=== PATIENT | female | born 1965 | race Caucasian/White ===

== ENCOUNTER → 2018-04-03 08:22 | Outpatient (CLI) | payer BC, SELFPAY ==
--- NOTE | 2018-04-03 08:25 | MR_ITS ---
MR head/brain wo con Ordering Physician: Amy Mitchell Patient Age: 52 years: Female HISTORY: ITS.REASON: LEFT ARM WEAKNESS, FACIAL DROOP Greco's palsy left side 2 weeks. Persistent facial droop. Also pain behind eye and left ear. TECHNIQUE: : Precontrast Multiplanar FLAIR, T1, T2 weighted images along with axial diffusion/ADC imaging performed on 1.5 T. Siemens, MRI. Postcontrast imaging Following 12 mL ProHance T1-weighted images axial & coronal plane performed COMPARISON :CT head FINDINGS normal appearing MR Brain for age.. . Diffusion images reveal no recent infarct or ischemia. No territorial infarct. . No extra-axial nor subdural collection.No mass lesion No discrete or focal deep white matter lesions of significance evident. The sensitive FLAIR images show no significant focal or discrete white matter lesions. FLAIR images show only some normal signal at tip of anterior horns with Only upper normal signal barely evident, overlying atria & occipital horns of left lateral ventricle bilaterally, more so than right . Can be related ventricle pulsation vs very early periventricular white matter signal change.. The cranial cervical junction is normal. In regards to the Greco's palsy symptoms attention directed to the Meckel's cave and parasellar region which appear normal on this noncontrast study.. Cavernous sinus regions unremarkable bilaterally as well... Also sella, Suprasellar region, ventricles and basal cisterns unremarkable.. . Gross overview of the [place] unremarkable on this routine survey brain MR.Orbits unremarkable Posterior fossa appears satisfactory. CP angles clear. Cranial nerve VII and VIII identified and appear satisfactory. Normal IACs bilaterally. Mastoid and temporal bone region unremarkable Minor paranasal sinus disease Opacification of one or 2 left ethmoid air cells reflecting mild ethmoid sinus inflammatory changes. Only borderline/scant mucosal thickening elsewhere and ethmoid air cells as well as throughout the sphenoid sinus. Maxillary sinuses unremarkable but frontal sinuses clear. Scalp and skull satisfactory . IMPRESSION: Basically Negative MR brain for age No acute intracranial findings. No recent or acute infarct/nor ischemia evident No mass lesion. No definitive deep white matter abnormalities. No Focal FLAIR signal abnormalities Only Upper normal signal overlying the atria & occipital horn on left-likely within spectrum normal for age,
== END ==
PROVIDERS: PCP Nurse Practitioner; Visit Provider Nurse Practitioner
DX: R29.810 Facial weakness (principal); R29.898 Other symptoms and signs involving the musculoskeletal system
CPT/HCPCS: 70551

== ENCOUNTER → 2019-02-14 08:53 | Outpatient (CLI) | payer BC, SELFPAY ==
--- NOTE | 2019-02-14 09:00 | US_ITS ---
PROCEDURE: US THYROID CLINICAL INDICATION: UNCOMPENSATED SWALLOWING IMPAIRMENT ,PAIN Difficulty swallowing COMPARISON: No exams were available for comparison FINDINGS: Right lobe: 4 x 1.5 x 1.5 cm. 3 mm cyst upper pole with some heterogeneous echogenicity noted Left lobe: 3.8 x 1.2 x 1.4 cm. Subtle 6 mm nodule lower pole hypoechoic nonspecific Isthmus: Unremarkable Additional findings: IMPRESSION: Small bilateral thyroid nodules low level of suspicion for malignancy otherwise negative. The thyroid gland is not enlarged Dictated by: Felipe Yeung MD 02/14/2019 17:27 Signed by: <Electronically signed by Felipe Yeung MD in [place]> 02/14/2019 17:27
== END ==
PROVIDERS: PCP Nurse Practitioner; Visit Provider Nurse Practitioner
DX: R13.19 Other dysphagia (principal); R52 Pain, unspecified
CPT/HCPCS: 76536

== ENCOUNTER → 2019-03-10 15:17 | Outpatient (CLI) | payer BC, SELFPAY ==
[2019-03-10 16:12] LABS: Free T4 (Free Thyroxine) 0.78 ng/dl (0.76-1.46); Thyroid Stimulating Hormone 2.02 uIU/ml (0.358-3.740)
[2019-03-15 13:21] LABS: Calcitonin <2.0 pg/mL (0.0-5.0)
== END ==
PROVIDERS: Visit Provider Otolaryngology
DX: E04.1 Nontoxic single thyroid nodule (principal); R13.10 Dysphagia, unspecified
CPT/HCPCS: 36415; 82308; 84439; 84443

== ENCOUNTER → 2019-03-14 08:48 | Outpatient (CLI) | payer BC, SELFPAY ==
--- NOTE | 2019-03-14 08:50 | FL_ITS ---
PROCEDURE: FL BARIUM SWALLOW CLINICAL INDICATION: swallowing difficulty sensation of food hanging up in cervical region COMPARISON: No exams were available for comparison TECHNIQUE: In the upright position the patient was observed to swallow barium in both the AP and lateral view. The cervical esophagus was examined under fluoroscopy with images obtained. The patient was then placed prone in the right anterior oblique position and was observed to swallow barium with Valsalva technique . FLUOROSCOPY TIME: FINDINGS: Was normal. Spot films of the cervical esophagus show prominent cricopharyngeal dysfunction at the level of the C6 vertebral body focally narrowing the barium column by approximately 50 percent. There was no evidence of aspiration. Otherwise esophageal motility was normal. There is a mildly patulous gastroesophageal junction but there is no GE reflux seen during the study. 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 Josr Orantes MD 03/14/2019 10:[address] Josr Orantes MD in [place] 03/14/2019 10:17
== END ==
PROVIDERS: PCP Nurse Practitioner; Visit Provider Otolaryngology
DX: E04.1 Nontoxic single thyroid nodule (principal); R13.10 Dysphagia, unspecified
CPT/HCPCS: 74220

== ENCOUNTER → 2020-02-05 13:05 | Outpatient (CLI) | payer BC, SELFPAY ==
[2020-02-06 13:52] LABS: Covid-19 Nasal PCR Sendout Lex Not Detected
== END ==
PROVIDERS: PCP Nurse Practitioner; Visit Provider Nurse Practitioner Family
DX: Z03.818 Encounter for observation for suspected exposure to other biological agents ruled out (principal)
CPT/HCPCS: U0004

== ENCOUNTER 2020-07-04 13:57 | Emergency (ER) | payer BC, SELFPAY ==
[2020-07-04 14:00] VITALS: BP 125/76; PULSE 69; RESP 14; TEMP 36.6; O2SAT 96; BMI 28.6
--- NOTE | 2020-07-04 14:13 | HMH.EDUTC ---
[facility] [place] Impression: Exposure to COVID-19 virus Disposition: Home, Self-Care Condition on Discharge: Good Instructions: Preventing the Spread of Coronavirus Discharge Instructions Additional Instructions: Drink plenty of fluids. Take tylenol for pain or fever. Return if you begin to have difficulty breathing. Follow up with your regular doctor. GO TO THE ER FOR ANY WORSENING SYMPTOMS Prescriptions: Ondansetron [Zofran 4mg ODT] 4 mg PO Q8HP PRN #12 tab.rapdis PRN Reason: Nausea Transmission Status: Received by [facility] Referrals: Amy Mitchell APRN [Primary Care Provider] - Time of Disposition: 14:37 Medical Decision Making - Medical Records Medical records reviewed: No: I reviewed the patient's medical records. - Nile Inquiry Pt receiving controlled substance: No Vital Signs: 07/04/20 14:00 07/04/20 14:24 Temperature 97.9 F 97.9 F Temperature Source Oral Pulse Rate 69 Pulse Rate [Right Brachial] 69 Respiratory Rate 14 14 Blood Pressure 125/76 Blood Pressure [Right Arm] 125/76 Blood Pressure Mean [Right Arm] 92 Blood Pressure Source [Right Arm] Automatic Cuff Blood Pressure Position [Right Arm] Sitting 02 Sat by Pulse Oximetry 96 Oxygen Delivery Method Room Air Orders (Tests/Meds): ORDERS Category Date Time Status Covid-19 Nasal PCR ([facility]) Routine Lab 07/04/20 14:05 [place] [facility] [place] - General Stated complaint: covid exposure Time Seen by Provider: 07/04/20 14:13 - History of Present Illness Provider Complaint: She states that she was exposed to covid at her workplace about 1 week ago. She states that over the past 1 day she has developed body aches, sinus congestion, and malaise. - Related Data Home Medications Medication Instructions Recorded Confirmed gabapentin 800 mg tablet 800 mg PO TID 03/10/19 03/10/19 rosuvastatin 40 mg tablet 40 mg PO DAILY 03/10/19 03/10/19 Previous Rx's Medication Instructions Recorded Ondansetron [Zofran 4mg ODT] 4 mg PO Q8HP PRN #12 tab.rapdis 07/04/20 Allergies Allergy/AdvReac Type Severity Reaction Status Date / Time No Known Allergies Allergy Verified 03/10/19 14:56 [facility] History - Hepatitis A Screen Attestation statement:: This patient has been screened for Hepatitis A risk factors. I have reviewed the patient's past medical history: Yes Medical History: Reports:: Hyperlipidemia, Hypertension Denies:: Internal Pacemaker Other Surgeries: Yes: Other. No: Pacemaker Amputation: No Fractures: No Comment: back - Social History Smoking Status: Never smoker Alcohol Intake: never Substance Use Type: denies use Occupational Status: employed Family Hx:: Stroke ROS Obtained: Yes All systems reviewed & no additional complaints - Constitutional Constitutional: Reports system reviewed and no additional complaints, except as docu - Eyes Eyes: Reports system reviewed and no additional complaints, except as docu - ENT Ears, Nose, Mouth, and Throat: Reports system reviewed and no additional complaints, except as docu - Cardiovascular Cardiovascular: Reports system reviewed and no additional complaints, except as docu - Respiratory Respiratory: Reports system reviewed and no additional complaints, except as docu - Gastrointestinal Gastrointestingal: Reports: system reviewed and no additional complaints, except as docu Physical Exam - General General appearance: alert, in no apparent distress - Head Head exam: atraumatic, normocephalic, normal inspection - Eye Eye exam: Present: normal appearance, PERRL, EOMI - ENT ENT exam: Present: normal exam, normal oropharynx, mucous membranes moist, TM's normal bilaterally, normal external ear exam - Neck Neck exam: Present: normal inspection, full ROM, trachea midline. Absent: meningismus, lymphadenopathy - Chest Chest inspection: Present: normal inspection, symmetric chest wall ri
[2020-07-04 14:24] VITALS: BP 125/76; PULSE 69; RESP 14; TEMP 36.6; O2SAT 96
--- NOTE | 2020-07-04 20:30 | PC.NURSE ---
ATTEMPTED TO CALL PATIENT TO REPORT POSITIVE TEST AT THIS TIME. NO ANSWER. VOICEMAIL LEFT TO RETURN CALL
--- NOTE | 2020-07-04 20:34 | PC.NURSE ---
PATIENT NOTIFIED OF POSITIVE COVID TEST AT THIS TIME
== END 2020-07-04 14:45 | disposition home or self-care (01) ==
PROVIDERS: Emergency Provider Nurse Practitioner Family; PCP Nurse Practitioner
DX: U07.1 COVID-19 (principal); E78.5 Hyperlipidemia, unspecified; I10 Essential (primary) hypertension; Z79.899 Other long term (current) drug therapy
CPT/HCPCS: 99202; G0463; U0003

== ENCOUNTER 2021-02-16 08:58 | Emergency (ER) | payer BC, SELFPAY ==
[2021-02-16 09:30] VITALS: PULSE 86; RESP 16; TEMP 36.6; O2SAT 98; BMI 30.7
--- NOTE | 2021-02-16 09:31 | HMH.EDUTC ---
[facility] [place] Clinical Impression: Viral syndrome, Exposure to COVID-19 virus Disposition: Home, Self-Care Condition on Discharge: Good Instructions: DI for COVID-19 (Suspected or Confirmed ), Preventing the Spread of Coronavirus Discharge Instructions Additional Instructions: Drink plenty of fluids. Take tylenol for pain or fever. Return if you begin to have difficulty breathing. Follow up with your regular doctor. GO TO THE ER FOR ANY WORSENING SYMPTOMS Quarantine until you know the results of your covid-19 test. If it is positive, the health department should call you and give you further instructions about your length of Quarantine and other things. Notify your school or workplace of your results and follow their instructions regarding return to work/school. Referrals: Dory Barber MD [Primary Care Provider] - Forms: Work/School Release Time of Disposition: 09:37 Medical Decision Making - Medical Records Medical records reviewed: No: I reviewed the patient's medical records. - Nile Inquiry Pt receiving controlled substance: No Vital Signs: 02/16/21 09:30 02/16/21 09:33 Temperature 97.9 F 98 F Temperature Source Oral Pulse Rate 86 Pulse Rate [Left] 86 Respiratory Rate 16 16 Blood Pressure 147/83 H 02 Sat by Pulse Oximetry 98 [facility] [place] HPI - General Stated complaint: Covid test; cough; weakness;headache Time Seen by Provider: 02/16/21 09:31 - History of Present Illness Provider Complaint: She needs to be tested for covid-19. - Related Data Home Medications Medication Instructions Recorded Confirmed gabapentin 800 mg tablet 800 mg PO TID 03/10/19 03/10/19 rosuvastatin 40 mg tablet 40 mg PO DAILY 03/10/19 03/10/19 Previous Rx's Medication Instructions Recorded Ondansetron [Zofran 4mg ODT] 4 mg PO Q8HP PRN #12 tab.rapdis 07/04/20 Allergies Allergy/AdvReac Type Severity Reaction Status Date / Time No Known Allergies Allergy Verified 03/10/19 14:56 [facility] History - Hepatitis A Screen Attestation statement:: This patient has been screened for Hepatitis A risk factors. I have reviewed the patient's past medical history: Yes Medical History: Reports:: Hyperlipidemia, Hypertension Denies:: Internal Pacemaker Other Surgeries: Yes: Other. No: Pacemaker Amputation: No Fractures: No Comment: back - Social History Smoking Status: Never smoker Alcohol Intake: never Substance Use Type: denies use Occupational Status: other Family Hx:: Stroke ROS Obtained: Yes All systems reviewed & no additional complaints - Constitutional Constitutional: Reports system reviewed and no additional complaints, except as docu - Eyes Eyes: Reports system reviewed and no additional complaints, except as docu - ENT Ears, Nose, Mouth, and Throat: Reports system reviewed and no additional complaints, except as docu - Cardiovascular Cardiovascular: Reports system reviewed and no additional complaints, except as docu - Respiratory Respiratory: Reports system reviewed and no additional complaints, except as docu - Gastrointestinal Gastrointestingal: Reports: system reviewed and no additional complaints, except as docu Physical Exam - General General appearance: alert, in no apparent distress - Head Head exam: atraumatic, normocephalic, normal inspection - Eye Eye exam: Present: normal appearance, PERRL, EOMI - ENT ENT exam: Present: normal exam, normal oropharynx, mucous membranes moist, TM's normal bilaterally, normal external ear exam - Neck Neck exam: Present: normal inspection, full ROM, trachea midline. Absent: meningismus, lymphadenopathy - Chest Chest inspection: Present: normal inspection, symmetric chest wall rise. Absent: tenderness - Respiratory Respiratory exam: Present: normal lung sounds bilaterally. Absent: respiratory distress - Cardiovascular Cardiovascular exam: Present: regular rate, normal rhythm. Absent: JVD
[2021-02-16 09:33] VITALS: BP 147/83; PULSE 86; RESP 16; TEMP 36.6
== END 2021-02-16 09:53 | disposition home or self-care (01) ==
PROVIDERS: Emergency Provider Nurse Practitioner Family; PCP Family Medicine
DX: B34.9 Viral infection, unspecified (principal); Z20.822 Contact with and (suspected) exposure to COVID-19
CPT/HCPCS: 99202; G0463; U0003

== ENCOUNTER 2022-03-17 20:46 | Observation (INO) | payer BC, SELFPAY ==
--- NOTE | 2022-03-17 20:44 | ECG_ITS ---
APPROVED REPORT Exam: Resting ECG HR:69 bpm ECG Measurements Heart Rate 69 AXES NJ 216 P 72 QRSd 90 QRS 71 QT 396 T 64 QTc 414 Conclusion SINUS RHYTHM WITH FIRST DEGREE AV BLOCK ABNORMAL ECG UNCONFIRMED REPORT Electronically signed by : Alessio Lyle MD 03/18/2022 16:04:37
[2022-03-17 20:46] VITALS: BP 136/97; PULSE 80; RESP 16; TEMP 36.7; O2SAT 97; BMI 29.9
--- NOTE | 2022-03-17 20:58 | XR_ITS ---
PROCEDURE INFORMATION: Exam: XR Chest Exam date and time: 03/17/22 09:15 PM Age: 56 years old Clinical indication: Sternal or substernal pain; Additional info: Chest pain TECHNIQUE: Imaging protocol: Radiologic exam of the chest. Views: 2 views. COMPARISON: CR CXR1 CHEST-PORTABLE 09/12/16 12:23 PM FINDINGS: Lungs: Unremarkable. No consolidation. Pleural spaces: Unremarkable. No pleural effusion. No pneumothorax. Heart/Mediastinum: Unremarkable. No cardiomegaly. Bones/joints: Unremarkable. IMPRESSION: No acute findings.
[2022-03-17 21:00] VITALS: BP 125/70; PULSE 65; RESP 17; O2SAT 95
[2022-03-17 21:06] LABS: Basophils # 0.1 K/mm3 (0-0.2); Basophils % 1.3 % (0.1-2.0); Eosinophils # 0.3 K/mm3 (0.0-0.4); Eosinophils % 2.3 % (0.1-12.0); Hematocrit 38.2 % (37.0-47.0); Hemoglobin 12.4 g/dL (12.2-16.2); Lymphocytes # 3.4 K/mm3 (0.7-4.5); Lymphocytes % 31.5 % (10-50); Mean Corpuscular HGB Conc 32.5 g/dL (31.8-35.4); Mean Corpuscular Hemoglobin 29.2 pg (27.0-31.2); Mean Corpuscular Volume 89.9 fl (81-99); Mean Platelet Volume 8.1 fl (7.4-10.4); Monocytes # 0.6 K/mm3 (0.1-1.0); Monocytes % 5.1 % (1.7-9.3); Neutrophils # 6.5 K/mm3 (1.8-7.8); Neutrophils % 59.8 % (37.0-80.0); Platelet Count 316 K/mm3 (142-424); Red Blood Count 4.25 M/mm3 (4.20-5.40); Red Cell Distribution Width 13.5 % (11.5-17.5); White Blood Count 10.8 K/mm3 (4.8-10.8)
[2022-03-17 21:08] LABS: Chloride 102 mmol/L (98-107); Sodium 143 mmol/L (136-145)
[2022-03-17 21:09] LABS: Potassium 3.9 mmoL/L (3.5-5.1)
[2022-03-17 21:11] LABS: Alanine Aminotransferase 17 U/L (12-78); Albumin Level 4.3 g/dl (3.5-5.0); Albumin/Globulin Ratio 1.2 (1.1-1.8); Alkaline Phosphatase 98 U/L (38-126); Anion Gap 13.9 mEq/L (5-15); Aspartate Amino Transferase 34 U/L (14-36); Blood Urea Nitrogen 13 mg/dl (7-17); Carbon Dioxide 31 mmol/L (22.0-30.0); Creatinine Clearance Estimated 117 mL/min (50-200); Estimated Glomerular Filt Rate 86 ml/min (>60); GFR (African American) 104 ML/MIN (>60); Globulin 3.5 g/dL (1.3-3.2); Total Protein,Serum 7.8 g/dl (6.3-8.2)
[2022-03-17 21:12] LABS: Calcium 8.6 mg/dl (8.4-10.2); Glucose 84 mg/dl (74-100)
--- NOTE | 2022-03-17 21:17 | HMH.EDCP ---
Discharge Plan Disposition Patient Disposition: Admitted as Observation Chief Complaint: Chest Pain Clinical Impressions Clinical Impression: Chest pain, Hypertension Discharge ED Provider: Angel James Chest Pain HPI General Chief Complaint: Chest Pain Stated Complaint: CP/SOA Time Seen by Provider: 03/17/22 21:17 Mode of Arrival: Ambulatory Source of Information: Patient and Medical Record Limitations: No Limitations Description of Symptoms (Recalled from ER Triage Doc. by RN): pt states she has been short of air with chest pain since yesterday and now the pain has gotten worse 6/10 and she has tingling going down the left arm. no cardiac hx per pt History of Present Illness HPI narrative: acute onset of new chest pain with rad to lt upper ext with no fever or rash and no recent viral illness MD complaint: chest pain indicative of cardiac Onset (ago): day(s) Duration: intermittent Activity at onset: during rest Pain location: left chest Severity: moderate Quality: sharp Pain radiation: LUE Relieving factors: nothing Risk Factors for CAD: Hypertension and Family Hx of CAD Treatments prior to or on arrival for Cardiac Chest Pain: none ARCHANA Score for Non-Stemi Age of Patient: 50-59 years old Heart Rate: 50-69 bpm Systolic Blood Pressure: 120-139 mmhg Serum Creatinine: 0.40-0.79 mg/dl CHF Killip Class: I-No CHF Other Risk Factors: None Non-Stemi Risk Score: 82 Related Data On Oral Contraceptives: No Home Medications Medication Instructions Recorded Confirmed gabapentin 800 mg tablet 800 mg PO TID 03/10/19 03/10/19 rosuvastatin 40 mg tablet (Crestor) 40 mg PO DAILY 03/10/19 03/10/19 Previous Rx's Medication Instructions Recorded ondansetron 4 mg disintegrating 4 mg PO Q8HP PRN Nausea ##12 07/04/20 tablet Allergies Allergy/AdvReac Type Severity Reaction Status Date / Time No Known Allergies Allergy Verified 03/10/19 14:56 PFSH PFSH Social History Smoking Status: Never smoker alcohol intake: never substance use type: denies use current occupational status: other Travel in the last 8 weeks: None caffeine: Yes ROS Obtained: Yes All systems reviewed & no additional complaints except as documented Constitutional Constitutional: Denies fever(s) and Denies headache(s) ENT Ears, Nose, Mouth, and Throat: Denies dizziness and Denies headache(s) Cardiovascular Cardiovascular: Reports as per HPI, Reports chest pain at rest, Denies dyspnea and Reports radiating jaw, neck or arm pain Respiratory Respiratory: Denies dyspnea Gastrointestinal Gastrointestingal: Denies hematochezia Musculoskeletal Musculoskeletal: Denies joint swelling Integumentary/Breasts Skin/Breast: Denies rash Neurologic Neurologic: Denies dizziness and Denies headache(s) Physical Exam General General appearance: alert Head Head exam: normocephalic Eye Eye exam: Present PERRL and EOMI; Absent scleral icterus ENT ENT exam: Present mucous membranes moist Neck Neck exam: Present trachea midline Respiratory Respiratory exam: Present normal lung sounds bilaterally; Absent respiratory distress Cardiovascular Cardiovascular exam: Present regular rate and systolic murmur; Absent rubs Abdominal Exam Abdominal exam: Present soft Extremities Exam Extremities exam: Present full ROM; Absent calf tenderness Neurological Exam Neurological exam: Present alert, oriented X3 and CN II-XII intact Psychiatric Psychiatric exam: Present normal affect Skin Skin exam: Absent rash Medical Decision Making Medical Records Medical records reviewed: Yes I reviewed the patient's medical records. Nile Inquiry Pt receiving controlled substance: No Vital Signs: 03/17/22 20:46 03/17/22 21:00 03/17/22 21:30 Temperature 98.0 F Temperature Source Oral Pulse Rate 65 58 L Pulse Rate [Left] 80 Respiratory Rate 16 17 18 Blood Pressure 125/70 131/69 Blood Pressure [Right Arm] 136/97 H Blood Pressure Mean [Right
[2022-03-17 21:19] LABS: Bilirubin,Total < 0.1 mg/dl (0.2-1.3)
--- NOTE | 2022-03-17 21:24 | PC.NURSE ---
pt on their way to xray at this time
[2022-03-17 21:26] LABS: Troponin I < 0.01 ng/ml (0.00-0.034)
--- NOTE | 2022-03-17 21:26 | PC.NURSE ---
pt back from xray
[2022-03-17 21:30] VITALS: BP 131/69; PULSE 58; RESP 18; O2SAT 95
[2022-03-17 22:02] LABS: Coronavirus 19, PCR Not Detected (NotDetected); Influenza A, PCR Not Detected (NotDetected); Influenza B, PCR Not Detected (NotDetected)
[2022-03-17 22:11] VITALS: BMI 32.1
[2022-03-17 22:30] VITALS: BP 111/65; PULSE 60; O2SAT 97
--- NOTE | 2022-03-17 23:41 | PC.NURSE ---
Report called to [facility] at this time
[2022-03-17 23:42] VITALS: BP 124/84; PULSE 55; RESP 16; TEMP 36.6; O2SAT 97
--- NOTE | 2022-03-17 23:44 | PC.NURSE ---
pt arrived to the floor via wheel chair at this time
[2022-03-18] VITALS: BP 129/75; PULSE 58; RESP 20; TEMP 36.6; O2SAT 97
[2022-03-18 00:22] VITALS: PULSE 60
[2022-03-18 04:00] VITALS: BP 118/61; PULSE 60; PULSE 63; RESP 16; TEMP 36.7; O2SAT 92
--- NOTE | 2022-03-18 05:17 | PC.NURSE ---
pt admitted this shift. she is a&oX4. she has had no c/o CP or SOA. ambulates independently and tolerates well. remains on RA o2 sats 92-97%. lung sounds clear. call light in reach no needs at this time.
[2022-03-18 06:48] LABS: Basophils # 0.1 K/mm3 (0-0.2); Basophils % 0.9 % (0.1-2.0); Chloride 106 mmol/L (98-107); Eosinophils # 0.2 K/mm3 (0.0-0.4); Eosinophils % 2.9 % (0.1-12.0); Hematocrit 34.8 % (37.0-47.0); Hemoglobin 11.2 g/dL (12.2-16.2); Lymphocytes % 38.2 % (10-50); Mean Corpuscular Hemoglobin 29.1 pg (27.0-31.2); Mean Corpuscular Volume 90.7 fl (81-99); Mean Platelet Volume 7.8 fl (7.4-10.4); Monocytes # 0.3 K/mm3 (0.1-1.0); Monocytes % 5.9 % (1.7-9.3); Neutrophils # 2.8 K/mm3 (1.8-7.8); Platelet Count 294 K/mm3 (142-424); Red Blood Count 3.84 M/mm3 (4.20-5.40); Red Cell Distribution Width 13.7 % (11.5-17.5); White Blood Count 5.3 K/mm3 (4.8-10.8)
[2022-03-18 06:49] LABS: Potassium 4.1 mmoL/L (3.5-5.1); Sodium 140 mmol/L (136-145)
[2022-03-18 06:51] LABS: Anion Gap 9.1 mEq/L (5-15); Blood Urea Nitrogen 9 mg/dl (7-17); Carbon Dioxide 29 mmol/L (22.0-30.0); Creatinine Clearance Estimated 146 mL/min (50-200); Estimated Glomerular Filt Rate 103 ml/min (>60); GFR (African American) 124 ML/MIN (>60)
[2022-03-18 06:52] LABS: Calcium 8.2 mg/dl (8.4-10.2); Chol/HDL Ratio 4.2 (1-3.5); Cholesterol 165 mg/dl (140-200); Glucose 111 mg/dl (74-100); HDL Cholesterol 39 mg/dl (40-60); Magnesium 2.1 mg/dl (1.6-2.3); Triglycerides 87 mg/dl (30-150); VLDL Cholesterol 17 mg/dL (0-40)
[2022-03-18 07:03] LABS: Direct LDL Cholesterol 93.31 mg/dL (100-129)
[2022-03-18 07:48] VITALS: BP 115/60; PULSE 65; RESP 16; TEMP 36.6; O2SAT 94
[2022-03-18 08:00] VITALS: PULSE 65; O2SAT 94
--- NOTE | 2022-03-18 11:56 | EXP.HPDC ---
General Admission date:: 03/17/22 *Admission Date: 03/17/22 *Chief complaint: Chest pain *History of present illness: Ms. Rodríguez 66-year-old female with a history of hypertension and hyperlipidemia who presented to the emergency room last evening after experiencing episode of chest pain. States she was sitting at home when she developed the pain which radiated to her left arm. She had no associated shortness of breath, palpitations, or nausea. She reports having similar episodes in the past but this 1 seemed a little worse. In the emergency room she was treated with nitroglycerin and aspirin and her pain promptly resolved. Initial EKG and enzymes were negative. She was admitted for serial enzymes and observation. [facility] Medical History (Updated 03/18/22 @ 14:02 by Gabo Harper MD) Back pain Greco's palsy Surgical History (Updated 03/18/22 @ 00:35 by Alba Roca RN) Previous back surgery Family History (Updated 03/18/22 @ 00:35 by Alba Roca RN) Family history of stroke Family history of hypertension Family history of myocardial infarction Lung cancer Social History (Updated 03/18/22 @ 00:37 by Alba Roca RN) Smoking Status: Never smoker alcohol intake: never substance use type: denies use current occupational status: other Travel in the last 8 weeks: None caffeine: Yes Review of Systems Eyes Eyes: Reports system reviewed and no additional complaints, except as documented ENT Ears, Nose, Mouth, and Throat: Reports system reviewed and no additional complaints, except as documented and Denies dizziness *Cardiovascular Cardiovascular: Reports as per HPI and Denies dyspnea *Respiratory Respiratory: Denies chest congestion, Denies cough and Denies dyspnea *Gastrointestinal Gastrointestinal: Denies change in bowel habits and Denies nausea *Genitourinary Genitourinary: Denies dysuria and Denies urinary incontinence *Musculoskeletal Musculoskeletal: Denies arthralgias and Denies joint swelling *Neurologic Neurologic: Denies dizziness Exam Data for Last 24 hours Vital signs and Labs for Last 24 Hours: Temp Pulse Resp BP Pulse Ox 97.9 F 65 16 115/60 94 L 03/18/22 07:48 03/18/22 08:00 03/18/22 07:48 03/18/22 07:48 03/18/22 08:00 Laboratory Results - last 24 hr 03/17/22 20:55: WBC 10.8, RBC 4.25, Hgb 12.4, Hct 38.2, MCV 89.9, MCH 29.2, MCHC 32.5, RDW 13.5, Plt Count 316, MPV 8.1, Neut % (Auto) 59.8, Lymph % (Auto) 31.5, Mcclain % (Auto) 5.1, Eos % (Auto) 2.3, Baso % (Auto) 1.3, Neut # (Auto) 6.5, Lymph # (Auto) 3.4, Mcclain # (Auto) 0.6, Eos # (Auto) 0.3, Baso # (Auto) 0.1 03/17/22 20:55: Sodium 143, Potassium 3.9, Chloride 102, Carbon Dioxide 31 H, Anion Gap 13.9, BUN 13, Creatinine 0.70, Estimated Creat Clear 117, Estimated GFR 86, Est GFR ( Amer) 104, Glucose 84, Calcium 8.6, Total Bilirubin < 0.1 L, AST 34, ALT 17, Alkaline Phosphatase 98, Troponin I < 0.01, Total Protein 7.8, Albumin 4.3, Globulin 3.5 H, Albumin/Globulin Ratio 1.2 03/17/22 21:50: SARS-CoV-2 (PCR) Not detected, Influenza A Untype (PCR) Not detected, Influenza Type B (PCR) Not detected 03/18/22 05:35: WBC 5.3 D, RBC 3.84 L, Hgb 11.2 L, Hct 34.8 L, MCV 90.7, MCH 29.1, MCHC 32.0, RDW 13.7, Plt Count 294, MPV 7.8, Neut % (Auto) 52.0, Lymph % (Auto) 38.2, Mcclain % (Auto) 5.9, Eos % (Auto) 2.9, Baso % (Auto) 0.9, Neut # (Auto) 2.8, Lymph # (Auto) 2.0, Mcclain # (Auto) 0.3, Eos # (Auto) 0.2, Baso # (Auto) 0.1 03/18/22 05:35: Sodium 140, Potassium 4.1, Chloride 106, Carbon Dioxide 29, Anion Gap 9.1, BUN 9 D, Creatinine 0.60, Estimated Creat Clear 146, Estimated GFR 103, Est GFR ( Amer) 124, Glucose 111 H D, Calcium 8.2 L, Magnesium 2.1, Triglycerides 87, Cholesterol 165, LDL Cholesterol Direct 93.31 L, VLDL Cholesterol 17, HDL Cholesterol 39 L, Cholesterol/HDL Ratio 4.2 H I & O for Last 24 hours: Intake & Output 03/15/22 03/16/22 03/17/22 03/18/22 11:59 11:59 11:59 11:59 Intake Total 695 /
--- NOTE | 2022-03-20 12:55 | CARE MANAGER ---
Attempted post-discharge phone interview, no answer.
== END 2022-03-18 11:07 | disposition home or self-care (01) ==
LOC: ER 21:48 → 2ND 22:39
PROVIDERS: Admitting Provider Family Medicine; Emergency Provider Emergency Medicine; PCP Nurse Practitioner Family; Visit Provider Family Medicine
DX: R07.9 Chest pain, unspecified (principal); I10 Essential (primary) hypertension; E78.5 Hyperlipidemia, unspecified; Z82.49 Family history of ischemic heart disease and other diseases of the circulatory system; Z79.899 Other long term (current) drug therapy
CPT/HCPCS: 36415; 71046; 80048; 80053; 80061; 83735; 84484; 85025; 93005; C9803; G0378; U0003; U0005

== ENCOUNTER 2023-07-09 11:35 | Emergency (ER) | payer BC, SELFPAY ==
[2023-07-09 11:36] VITALS: BP 138/85; PULSE 85; RESP 18; TEMP 36.4; O2SAT 97; BMI 29.6
--- NOTE | 2023-07-09 11:47 | XR_ITS ---
FINAL REPORT CLINICAL HISTORY: pain jammed leg while stopping a sled(snow) COMPARISON: None FINDINGS: AP, lateral and oblique views of the right knee were obtained. There is no prior exam for comparison. There is no acute osseous abnormality of the right knee. There are minimal osteophytes involving the undersurface of the patella. The soft tissues are normal. There is no joint effusion. IMPRESSION: No acute osseous abnormality of the right knee. Minimal degenerative change as described. Reviewed, Interpreted and Dictated by Matti Lock MD Transcribed by Ivonne Drew Authenticated and [facility]
--- NOTE | 2023-07-09 11:48 | PC.NURSE ---
Called ellen at 11:49 to know that we had put the xray in.
--- NOTE | 2023-07-09 11:51 | PC.NURSE ---
Pt going to RAD
--- NOTE | 2023-07-09 11:58 | EXP.UTC ---
Discharge Plan Disposition Patient Disposition: Home, Self-Care Condition: Good Prescriptions Prescriptions: New ibuprofen [ibuprofen] 600 mg tablet 600 mg PO Q6HP PRN (Reason: Mild Pain) Qty: 30 0RF No Action nystatin 100,000 unit/mL suspension 1 ml mucous membrane NEEDED PRN (Reason: Wound Healing) pravastatin 40 mg tablet 40 mg PO DAILY gabapentin 800 mg tablet 800 mg PO BID lisinopril 10 mg tablet 10 mg PO DAILY sertraline 25 mg tablet 25 mg PO DAILY nitroglycerin 0.4 mg tablet, sublingual 0.4 mg sublingual Q5M PRN (Reason: chest pain) Qty: 25 0RF Rx Instructions: do not exceed 3 doses per episode Referrals Follow up/Referrals: Dory Barber MD [Primary Care Provider] - See instructions Christiano Pickard DO [Staff Physician] - See instructions Activity Restrictions/Add. Instructions Additional Instructions/Restrictions: Rest the extremity, apply ice for 15 minutes as tolerated three or four times per day, Elevate the extremity as tolerated while you are resting. Take ibuprofen for pain (if you can take this). I sent in a prescription to your pharmacy. Follow up with Dr. Pickard (orthopedics). I put in a referral but you need to call his office and schedule an appointment. Follow up with your regular doctor. GO TO THE ER FOR ANY WORSENING SYMPTOMS Clinical Impressions Clinical Impression: Right knee sprain, Knee pain, right Stand Alone Forms Stand Alone Forms: Work/School Release Discharge ED Provider: Demario Boyle [facility] General Stated complaint: AO 07/09 right knee pain Mode of Arrival: Ambulatory Source of Information: Patient Limitations: No Limitations Time Seen by Provider: 07/09/23 11:58 Description of Symptoms (Recalled from Triage Doc. by RN): Pt was sled riding and hurt right knee HEENT Symptoms (Recalled from RN notes): No Resp Symptoms (Recalled from RN notes): No Skin Symptoms (Recalled from RN notes): No MS Symptoms (Recalled from RN notes): Yes Functional Status (Recalled from RN notes): n/a History of Present Illness Provider Complaint: She states that earlier today she was sleigh riding with her grand children when she twisted her right knee. Since then she has had pain and swelling of that knee. She states that her pain is worse when she bears weight or walks on the knee. She denies other injury. Related Data Home Medications Medication Instructions Recorded Confirmed gabapentin 800 mg tablet 800 mg PO BID Pain 03/17/22 07/09/23 lisinopril 10 mg tablet 10 mg PO DAILY Hypertension 03/17/22 07/09/23 nystatin 100,000 unit/mL oral 1 ml mucous membrane NEEDED PRN 03/17/22 suspension Wound Healing pravastatin 40 mg tablet 40 mg PO DAILY Cholesterol 03/17/22 07/09/23 sertraline 25 mg tablet 25 mg PO DAILY Depression 03/17/22 07/09/23 Previous Rx's Medication Instructions Recorded nitroglycerin 0.4 mg sublingual 0.4 mg sublingual Q5M PRN chest 03/18/22 tablet pain #25 tabs ibuprofen 600 mg tablet 600 mg PO Q6HP PRN Mild Pain #30 07/09/23 tabs Allergies Allergy/AdvReac Type Severity Reaction Status Date / Time No Known Allergies Allergy Verified 07/09/23 11:51 Worker's Comp Is this a Worker's Comp case?: No [facility] Disclaimer: The information contained in this section may have been updated after the patient was seen, as this information can be updated by other users. Medical History (Updated 07/09/23 @ 13:23 by Demario Boyle APRN) Back pain Greco's palsy CVA (cerebral vascular accident) Surgical History Previous back surgery Family History Other Family history of hypertension Family history of myocardial infarction Family history of stroke Lung cancer Social History (Updated 03/18/22 @ 00:37 by Alba Roca RN) Smoking Status: Never smoker alcohol intake: never substance use type: denies use current occupational status: other Travel in the last 8 weeks: None caffeine: Yes ROS Obtained: Yes All systems reviewed & no additional complaints except as documented Constitutional Constitutional: Denies chills and Denies fever(s) Eyes Eyes: Denies eye discharge ENT Ears, Nose, Mouth, and Throat: Denies dizziness, Denies otalgia and Denies sore throat Cardiovascular Cardiovascular: Denies chest pain Respiratory Respiratory: Denies shortness of breath, Denies chest congestion, Denies cough, Denies stridor and Denies wheezing Gastrointestinal Gastrointestingal: Denies nausea or vomiting Musculoskeletal Musculoskeletal: Reports as per HPI Integumentary/Breasts Skin/Breast: Denies rash and Denies wounds Neurologic Neurologic: Denies dizziness and Denies paresthesias Allergic/Immunologic Allergic/Immunologic: Denies wheezing Physical Exam General General appearance: alert and in no apparent distress Head Head exam: atraumatic, normocephalic and normal inspection Eye Eye exam: Present normal appearance, PERRL and EOMI ENT ENT exam: Present normal exam, normal oropharynx, mucous membranes moist, TM's normal bilaterally and normal external ear exam Neck Neck exam: Present normal inspection, full ROM and trachea midline; Absent meningismus or lymphadenopathy Chest Chest inspection: Present normal inspection and symmetric chest wall rise; Absent tenderness Respiratory Respiratory exam: Present normal lung sounds bilaterally; Absent respiratory distress Cardiovascular Cardiovascular exam: Present regular rate and normal rhythm; Absent JVD Abdominal Exam Abdominal exam: Present soft and normal bowel sounds; Absent distention, tenderness or guarding Extremities Exam Extremities exam: Present normal capillary refill; Absent calf tenderness Expanded Lower Extremity Exam Right: Hip/Pelvis exam: Present normal inspection and full ROM; Absent tenderness Upper leg exam: Present normal inspection and full ROM; Absent tenderness or erythema Knee exam: Present tenderness, swelling and knee extension intact; Absent abrasion, laceration, ecchymosis, deformity, crepitus, dislocation, erythema, effusion, anterior drawer sign, posterior draw sign, pain with valgus, laxity with valgus, pain with varus or laxity with varus Lower leg exam: Present normal inspection, full ROM and Achilles tendon intact; Absent tenderness or Homans' sign Ankle exam: Present normal inspection and full ROM; Absent tenderness Foot/toe exam: Present normal inspection and full ROM; Absent tenderness Neurovascular/Tendon exam: Present normal capillary refill; Absent pulse deficit, motor deficit, sensory deficit, tendon deficit or extremity cold to touch Gait: observed and limited by pain Back Exam Back exam: Present normal inspection; Absent tenderness Neurological Exam Neurological exam: Present alert and oriented X3 Psychiatric Psychiatric exam: Present normal affect and normal mood Skin Skin exam: Present warm, dry, intact and normal color Lymphatic Lymphatic Findings: no adenopathy Medical Decision Making Medical Records Medical records reviewed: No I reviewed the patient's medical records. [place] Inquiry Pt receiving controlled substance: No Vital Signs: 07/09/23 11:36 Temperature 97.6 F Temperature Source Oral Pulse Rate [Right Radial] 85 Respiratory Rate 18 Blood Pressure [Right Arm] 138/85 Blood Pressure Mean [Right Arm] 102 Blood Pressure Source [Right Arm] Automatic Cuff Blood Pressure Position [Right Arm] Sitting 02 Sat by Pulse Oximetry 97 Oxygen Delivery Method Room Air Orders (Tests/Meds): ORDERS Category Date Time Status Knee XR right 3 views [XR knee RT 3V] Stat Exams 07/09/23 11:47 Ordered Radiology Data #1: Image(s): Knee Image Reviewed: Yes I reviewed the patient's radiology image and Yes I have reviewed radiologist's interpretation Preliminary Findings: Normal/NAD and No Fracture Seen FINAL REPORT CLINICAL HISTORY: pain jammed leg while stopping a sled(snow) COMPARISON: None FINDINGS: AP, lateral and oblique views of the right knee were obtained. There is no prior exam for comparison. There is no acute osseous abnormality of the right knee. There are minimal osteophytes involving the undersurface of the patella. The soft tissues are normal. There is no joint effusion. IMPRESSION: No acute osseous abnormality of the right knee. Minimal degenerative change as described. Reviewed, Interpreted and Dictated by Matti Lock MD Transcribed by Ivonne Drew Authenticated and [facility] Procedures Risk/Benefits of Procedure(s) Were Explained: Yes Orthopedic Splinting/Casting Injury #1: Side: right Lower Extremity Injury Location: knee Lower Extremity Immobilizer: knee immobilizer Additional Comments: she refused crutches. Post Cast/Splinting Neuro Status: intact and no change Post Cast/Splinting Vasc Status: intact and no change
[2023-07-09 13:35] VITALS: BP 138/85; PULSE 85; RESP 18; TEMP 36.4; O2SAT 97
== END 2023-07-09 13:35 | disposition home or self-care (01) ==
PROVIDERS: Emergency Provider Nurse Practitioner Family; PCP Family Medicine
DX: S83.91XA Sprain of unspecified site of right knee, initial encounter (principal); M25.561 Pain in right knee; X50.1XXA Overexertion from prolonged static or awkward postures, initial encounter
CPT/HCPCS: 73562; 99212; 99214; G0463

== ENCOUNTER 2023-07-19 10:36 | Outpatient (CLI) | payer BC, SELFPAY ==
--- NOTE | 2023-07-19 10:55 | XR_ITS ---
FINAL REPORT CLINICAL HISTORY: right knee pain COMPARISON: None FINDINGS: AP, lateral and oblique views of the right knee were obtained. There is no prior exam for comparison. There is no acute osseous abnormality of the right knee. Mild degenerative changes present. The soft tissues are normal. There is no joint effusion. IMPRESSION: No acute osseous abnormality of the right knee. Mild degenerative change. Reviewed, Interpreted and Dictated by Andreina Humphries MD Transcribed by Ivonne Drew Authenticated and [facility]
== END 2023-07-19 23:59 ==
PROVIDERS: PCP Family Medicine; Visit Provider Orthopaedic Surgery
DX: M25.561 Pain in right knee (principal)
CPT/HCPCS: 73562

== ENCOUNTER 2023-07-19 11:46 | Outpatient (RCR) | payer BC, SELFPAY | END 2023-07-19 13:00 | disposition home or self-care (01) | LOC: PT 11:46 | PROVIDERS: Visit Provider Orthopaedic Surgery | DX: S83.91XA Sprain of unspecified site of right knee, initial encounter (principal); M25.561 Pain in right knee | CPT/HCPCS: 97760 ==